=== PATIENT | female | born 1935 | race Caucasian/White ===

== ENCOUNTER 2024-10-23 07:49 | Day surgery (SDC) | payer MEDICARE, OTHER, SELFPAY ==
[2024-10-23] VITALS (9 sets, daily range): BP systolic 123–152; BP diastolic 52–99; BMI 26.9
[2024-10-23 08:02] LABS: Glucose - Point of Care 145 mg/dl (70-99)
[2024-10-23] MEDS: LOW STRENGTH ASPIRIN 81 MG PO (08:27)
--- NOTE | 2024-10-23 08:33 | W.PN.CARDCBS ---
Today's Communication / Plan
-
ACS for [facility] today
Impression / Plan
-
This is a summary, see scanned H&P
PCP: Quynh Saba, DO
CDY: Manas Amezcua MD (new to pt)
89 yo WF h/o HTN, DM2 who has had several months of progressive angina and dyspnea and presented to ER 10/21/24. Her EKG shows a new LBBB, negative troponin and Echo with NL EF and no WMA. She was started on ASA ,statin and metoprolol. She is
transferred today for [facility] per pt request. On arrival she denies cp, sob.
Impression:
ACS
HTN
NIDDM2
LBBB
multinodular goiter
Vertigo
Plan:
[facility] today, non obstructive CAD
Rad band per protocol
IV hydration post cath
continue ASA
Will add Amlodipine 2.5mg daily, stop metoprolol
Will add low dose atorvastatin 10mg for LDL 69 and DM
Hold Metformin 48hrs post cath
Activity restrictions reviewed
f/u [facility] in 2-4 weeks
home later today
10/22/24 ECHO - LVEF 55%, no WMA, mod MR, mod MAC MG 4mmHg
Progress Note - Loop Tacker
Subjective
Date of Service: October 23, 2024
denies cp, sob
Objective
Labs:
Laboratory Last Values
WBC 9.0 10^3/uL (4.5-11.0) 10/22/24 06:35
RBC 4.55 10^6/uL (4.20-5.40) 10/22/24 06:35
Hgb 12.4 gm/dL (11.3-15.0) 10/22/24 06:35
Hct 38.8 % (34.0-44.0) 10/22/24 06:35
MCV 85 fl (82-98) 10/22/24 06:35
RDW 15.5 % (11.0-15.0) H 10/22/24 06:35
Plt Count 256 10^3/uL (150-400) 10/22/24 06:35
Neut % (Auto) 55 % (40-78) 10/22/24 06:35
Lymph % (Auto) 34 % (21-49) 10/22/24 06:35
Williamson % (Auto) 8 % (0-10) 10/22/24 06:35
Eos % (Auto) 2 % (0-4) 10/22/24 06:35
Baso % (Auto) 1 % (0-1) 10/22/24 06:35
Neut # (Auto) 5.0 10^3/uL (2.2-8.0) 10/22/24 06:35
Lymph # (Auto) 3.1 10^3/uL (1.0-4.0) 10/22/24 06:35
Williamson # (Auto) 0.7 10^3/uL (0.0-1.0) 10/22/24 06:35
Eos # (Auto) 0.2 10^3/uL (0.0-0.4) 10/22/24 06:35
Baso # (Auto) 0.1 10^3/uL (0.0-0.1) 10/22/24 06:35
PT 13.0 SECONDS (11.5-14.4) 10/21/24 14:00
INR 0.98 INR 10/21/24 14:00
APTT 32 SECONDS (23-37) 10/21/24 14:00
Sodium 141 mmol/L (136-145) 10/22/24 06:35
Potassium 4.3 mmol/L (3.5-5.1) 10/22/24 06:35
Chloride 103 mmol/L (98-107) 10/22/24 06:35
Carbon Dioxide 24.6 mmol/L (22.0-29.0) 10/22/24 06:35
Anion Gap 14 (7-16) 10/22/24 06:35
BUN 17 mg/dL (8-23) 10/22/24 06:35
Creatinine 0.74 mg/dL (0.50-0.90) 10/22/24 06:35
GFR Calculation 78 (Over 90) L 10/22/24 06:35
BUN/Creatinine Ratio 23.3 (7.0-25.0) 10/22/24 06:35
POC Glucometer 117 mg/dL (70 - 110) H 10/22/24 07:46
Fasting Glucose 121 mg/dL (70-110) H 10/22/24 06:35
Calcium 8.9 mg/dL (8.8-10.2) 10/22/24 06:35
Total Bilirubin 0.4 mg/dL (0.1-1.2) 10/22/24 06:35
AST 20 U/L (0-32) 10/22/24 06:35
ALT 18 U/L (0-33) 10/22/24 06:35
Alkaline Phosphatase 55 U/L (35-160) 10/22/24 06:35
Troponin T 5th Gen ng/L 12 ng/L (0-14) 10/22/24 00:20
Total Protein 6.8 g/dL (6.5-8.3) 10/22/24 06:35
Albumin 4.1 g/dL (3.5-5.2) 10/22/24 06:35
Globulin 2.7 g/dL (2.3-3.5) 10/22/24 06:35
Albumin/Globulin Ratio 1.5 (1.1-1.7) 10/22/24 06:35
Vital Signs and I&O:
Vital Signs
Pulse Resp BP Pulse Ox
62 18 152/99 98
10/23/24 08:06 10/23/24 08:06 10/23/24 08:06 10/23/24 08:06
Vital Signs
Pulse Resp BP Pulse Ox
62 18 152/99 98
10/23/24 08:06 10/23/24 08:06 10/23/24 08:06 10/23/24 08:06
Physical Exam
Physical Exam
NAD, AOX3
S1, s2, RRR, 1/6 MARY at apex
faint bibasilar crackles cleared with deep inspiration, non labored
SNTND bsx4
No LE edema
[2024-10-23] MEDS: NSS 220 ML IV (08:35)
--- NOTE | 2024-10-23 09:25 | ITS.CL.CATH ---
Data Management - Catheterization
Cardiac Catheterization
Procedure Report:
LEFT HEART CATHETERIZATION
Date of Procedure: October 23, 2024
Procedures performed:
1: Coronary angiography
2: Left ventricular hemodynamic assessment
Primary Care Physician: Dr. Quynh Saba
Primary Herbicide Sprayer: Dr. Manas Amezcua
INDICATION: The patient is an 89-year-old woman who presents with symptoms concerning for crescendo angina. Cardiac enzymes were negative. She also has a new intermittent left bundle branch block on EKG. Echocardiography showed normal LV systolic
function with no significant valvular heart disease.
ACCESS: The patient was prepped and draped in usual sterile fashion. A 5 Uz[place] sheath was placed in the right radial artery using the Seldinger over the wire technique.
HEMODYNAMIC FINDINGS (mmHg):
LV(s/d,EDP): 159/15, 23
Ao(s/d,m): 159/66, 97
ANGIOGRAPHIC FINDINGS:
Single-plane Left Ventriculography in HORTA Projection: Not done.
Coronary Angiography:
Dominance: Right
Left Main: Normal
Left Anterior Descending: The left anterior descending artery is a medium caliber vessel that gives rise to 2 major diagonal branches. These vessels have mild luminal irregularities throughout but no evidence of focal obstructive disease with
normal flow.
Left Circumflex: The left circumflex is a medium caliber nondominant system that gives rise to several tiny OM's and a large bifurcating distal left-sided posterior left ventricular branch. These vessels are patent with no focal obstructive disease
and normal flow.
Right Coronary: The right coronary artery is a medium caliber dominant vessel that gives rise to a medium to small caliber posterior descending artery and small posterior left regular branch system. These vessels have mild luminal irregularities
with no evidence of obstructive disease and normal flow.
Fluoroscopy Time (min): 2.2
Radiation Dose (mGy): 195
DAP (Gy.cm2): 11.9
Closure device: None. A TR band was applied for hemostasis at the right wrist.
Complications: None.
ASSESSMENT:
1: Mild nonobstructive coronary artery disease. No evidence for acute coronary syndrome.
2: Elevated left ventricular filling pressures in the setting of hypertension.
CONCLUSIONS and RECOMMENDATIONS:
1: Medical therapy for nonobstructive coronary artery disease.
Ronak Rubin M.D.
Copy to: Dr. Quynh Saba
== END 2024-10-23 12:20 | disposition home or self-care (01) ==
LOC: CATH 07:49
PROVIDERS: ATTENDING PHYSICIAN Internal Medicine Interventional Cardiology; FAMILY PHYSICIAN Family Medicine
DX: I25.10 Atherosclerotic heart disease of native coronary artery without angina pectoris (principal); I44.7 Left bundle-branch block, unspecified; E11.9 Type 2 diabetes mellitus without complications; I10 Essential (primary) hypertension; Z79.899 Other long term (current) drug therapy; Z79.84 Long term (current) use of oral hypoglycemic drugs
CPT/HCPCS: 82962; 93458; C1769; C1894; Q9967